=== PATIENT | male | born 1975 | race Caucasian/White ===

== ENCOUNTER 2018-05-28 07:01 | Day surgery (SDC) | payer OTHER, SELFPAY ==
[2018-05-25 13:26] VITALS: BMI 23.0
[2018-05-28] VITALS (7 sets, daily range): BP systolic 114–124; BP diastolic 74–80; PULSE 62–73; RESP 14–16; TEMP 36.2–36.4; O2SAT 95–98; BMI 23.0
--- NOTE | 2018-05-28 | PATH_ITS ---
[facility] Accession Number: [id number] . 01 Material submitted: . LEFT DORSAL WRIST MASS . 02 Diagnosis: Mass, Dorsal Aspect of Left Wrist: Ganglion cyst, negative for atypia. MRV/05/31/2018 . 02 Electronically signed: . Jeb Yang MD, Pathologist NPI- [id number] . 01 Gross description: . Received one formalin-filled container labeled with the patient's name and labeled left dorsal wrist mass. The specimen consists of a yellow-cordova portion of soft tissue which measures 1.5 x 1.0 x 0.6 cm. The surgical margin is inked blue. The specimen is sectioned into five pieces and entirely submitted in two cassettes. ([id number]) /FRR . 02 Pathologist provided ICD-10: M67.432 . 02 CPT . 317427 Performed at: 01 [facility] [address] [id number] MD Faustino Hu MD Phone: [phone] Performed at: 02 [facility] [place] [address] [place], [place] [id number] MD Tanner Decker MD Phone: [phone]
--- NOTE | 2018-05-28 07:28 | PM.PREOP ---
Pre-operative Note Interval Note Pre-op Check: Yes History & Physical Reviewed by Physician and Yes Exam Performed Changes: No
[2018-05-28] MEDS: LACTATED RINGERS 1,000 ML 42 ML IV (07:34)
[2018-05-28] MEDS: CEFAZOLIN 2 GM/100 ML FROZ.PIGGY IV (07:36)
--- NOTE | 2018-05-28 08:02 | SUR.OPER ---
to or from opd via gurney transfered to or table per self Supine on padded OR bed, head on pillow, right arm secured on padded arm boards at <90 degrees abduction, left arm on padded arm table, legs uncrossed, safety belt at thigh, tape over blanket over lower legs.
[2018-05-28] MEDS: fentaNYL 100 MCG/2 ML INJ 50 MCG IV ×2 (08:36→08:43)
[2018-05-28] MEDS: HYDROCODONE/ACET 5/325 TABLET 1 TAB PO (08:48)
--- NOTE | 2018-05-28 09:42 | PM.OP.1 ---
Operative Date/Time/Diagnoses Date of procedure: 05/28/18 Time of procedure: 07:42 Pre-op diagnosis: Left dorsal wrist mass, ganglion Post-op diagnosis: same Procedure & Clinicians Procedure: Left dorsal wrist mass excision, ganglion Same procedure as scheduled: Yes Indications: 42-year-old male who was had a dorsal wrist mass for 3 years that has been painful. Makes it difficult for him to exercise and do pushups. An aspiration was performed which showed a small amount of fluid but did not make the mass smaller. We discussed other options to include surgery and watchful waiting. He desired surgery. The risks, benefits, and alternatives to surgery were discussed. The risks included pain, bleeding, infection, damage to nearby structures, numbness, recurrence, and anesthetic complications. He signed a written consent form Surgeon: Florencio Gutierrez Click Yes if Unassisted: Yes Anesthesia Type: General Operative Notes Findings: 1 cm x 1 cm x 1 cm dorsal wrist mass that was removed en bloc and detached from its capsular attachment Closure Type: primary Specimen(s): other (Left dorsal wrist mass) Estimated Blood Loss (mL): 1 Blood products transfused: none Tourniquet time (min): 23 Procedure in detail: The patient was met in the preop hold area on the day of the procedure in the operative extremity was signed. Consent was verified. He desired to proceed. He was brought to the operating room and surrendered to anesthesia. Once general anesthesia been obtained he was placed in supine position all bony prominences were well padded. He was prepped and draped in the standard sterile fashion. A surgical time-out was held to confirm the patient's procedure, allergies, laterality, antibiotics and all were in agreement and we proceeded. An Esmarch was used to exsanguinate the limb and the tourniquet was elevated to 200 mm of mercury. A 2 cm transverse incision was made in line with the skin creases directly overlying the dorsal wrist mass. Scissor dissection was used to bluntly dissect down to the level of the mass and just deep to the extensor retinaculum which was split longitudinally. I then bluntly dissected the mass out with the use of scissors and followed it down to the base which was at the wrist capsule. A 4 mm x 4 mm section of the wrist capsule was removed with the mass in tact. The mass was passed off to the back table and off the field to pathology. I then irrigated the wound copiously and closed in a layered fashion with 2 O Vicryl in deep tissues and the subdermal tissue. A running Monocryl was placed in the skin. Steri-Strips with a sterile dressing were applied. A volar resting splint was placed and the patient was awakened and transferred to the recovery room. Complications: none Condition: stable Disposition: same day surgery Plan for aftercare: Same-day surgery discharge. Splint for 2 weeks. Suture tails will be cut at 2 weeks. No loading of the wrist until 6 weeks postop
== END 2018-05-28 09:30 | disposition home or self-care (01) ==
PROVIDERS: PCP Family Medicine; Visit Provider Orthopaedic Surgery
PROC: (CPT 26160; principal; 2018-05-28 07:45)
DX: M67.432 Ganglion, left wrist (principal)
CPT/HCPCS: 25111; 88304; J0690; J1100; J2704; J3010